=== PATIENT | female | born 2000 | race Caucasian/White ===

== ENCOUNTER 2023-09-12 10:17 | Emergency (ER) | payer BC ==
[2023-09-12 10:34] VITALS: BMI 34.7
[2023-09-12] MEDS ORDERED: SODIUM CHLORIDE 1,000 ML IV STA (11:29)
[2023-09-12] MEDS ORDERED: ONDANSETRON 4 MG/2 ML VIAL IVPUSH ONE (11:29)
[2023-09-12] MEDS ORDERED: ONDANSETRON 4 MG/2 ML VIAL ONE (11:47)
[2023-09-12 11:52] LABS: HEMATOCRIT 36.7 % (32.4-45.2); HEMOGLOBIN 11.7 GM/dL (10.7-15.3); MCH 24.9 pg (25.7-33.7); MEAN CELL VOLUME 77.8 fl (80-96); MEAN PLT VOLUME 8.3 fl (7.5-11.1); PLATELET COUNT 306 10^3/uL (134-434); RBC 4.72 M/mm3 (3.60-5.2); RDW 17.8 % (11.6-15.6)
[2023-09-12 12:32] LABS: POTASSIUM 3.8 mmol/L (3.5-5.1)
[2023-09-12 12:33] LABS: CALCIUM 9.3 mg/dL (8.5-10.1)
[2023-09-12 12:34] LABS: ALBUMIN 3.7 g/dl (3.4-5.0); BLOOD UREA NITROGEN 10.1 mg/dL (7-18); MAGNESIUM 2.2 mg/dL (1.8-2.4)
[2023-09-12 12:37] LABS: CREATININE 0.7 mg/dL (0.55-1.3); PHOSPHOROUS 2.7 mg/dL (2.5-4.9)
[2023-09-12 12:38] LABS: TOT PROT 7.6 g/dl (6.4-8.2)
[2023-09-12 12:39] LABS: BILIRUBIN,TOTAL 0.2 mg/dL (0.2-1)
[2023-09-12 14:52] VITALS: BP 131/80; PULSE 69; RESP 16; TEMP 98.5
== END 2023-09-12 14:58 | disposition home or self-care (01) ==
LOC: JER 10:17
PROC: 3E033NZ Introduction of Analgesics, Hypnotics, Sedatives into Peripheral Vein, Percutaneous Approach (ICD-10-PCS; principal; 2023-09-12)
PROC: 3E0337Z Introduction of Electrolytic and Water Balance Substance into Peripheral Vein, Percutaneous Approach (ICD-10-PCS; 2023-09-12)
DX: R11.10 Vomiting, unspecified (principal); J11.1 Influenza due to unidentified influenza virus with other respiratory manifestations; Z20.822 Contact with and (suspected) exposure to COVID-19
CPT/HCPCS: 0241U-QW; 36415; 80053; 82962; 83735; 84100; 85027; 99284-25